=== PATIENT | female | born 1970 | race Caucasian/White ===

== ENCOUNTER 2021-02-25 18:04 | Emergency (ER) | payer OTHER ==
[~2021-02-25] VITALS: Ht 162.6 cm; Wt 72.0 kg
--- NOTE | 2021-02-25 18:15 | NUR ---
PT PRESENTS TO ED VIA AMBULANCE, PRESENTING WITH LEFT LOWER ABD PAIN RADIAITNG TO LEFT FLANK, ONSET TODAY. PT A&O, RESPS EVEN AND UNLABORED. GIVEN 100MCG FENTANYL AND 4 MG ZOFRAN GUNSTOCK REPAIRER BY EMS. BP AND SPO2 MONITORS IN PLACE. CALL LIGHT IN REACH.
[2021-02-25] MEDS ORDERED: PLEASE ENTER HEIGHT AND WEIGHT MC SCH (18:30)
[2021-02-25] MEDS ORDERED: PLEASE ENTER ALLERGIES MC SCH (18:30)
[2021-02-25] MEDS ORDERED: KETOROLAC 30 MG/1 ML IVPush ONE (18:30)
--- NOTE | 2021-02-25 18:35 | NUR ---
PT TO CT
[2021-02-25] MEDS ORDERED: KETOROLAC 30 MG/1 ML ONE (18:50)
--- NOTE | 2021-02-25 18:56 | NUR ---
PT BACK FROM CT, PT MEDICATED PER EMAR WITH TORADOL.
[2021-02-25 18:58] LABS: MICROSCOPIC INDICATED
[2021-02-25] MEDS ORDERED: TAMSULOSIN 0.4 MG CAP.ER.24H PO ONE (19:00)
--- NOTE | 2021-02-25 19:05 | NUR ---
RECEIVED REPORT FROM BAILEY MEJIA. PT RESTING ON GURNEY. NOTED TO HAVE BP 203/110. ERP DR. HO NOTIFIED OF BP. ERP DR. HO TO ROOM 2 FOR RE-EVAL.
--- NOTE | 2021-02-25 19:07 | NUR ---
LAW NOTIFIED BP 203/[address] REPORT TO BAILEY GAMBLE WHO IS ASSUMING CARE.
[2021-02-25] MEDS ORDERED: HYDROmorphone 2 MG/ML, 1ML ONE (19:16)
[2021-02-25] MEDS ORDERED: TAMSULOSIN 0.4 MG CAP.ER.24H ONE (19:16)
--- NOTE | 2021-02-25 19:22 | NUR ---
PT RESTING ON [facility]. S. PT MEDICATED PER AUG.
[2021-02-25] MEDS ORDERED: HYDROmorphone 2 MG/ML, 1ML IVPush PRN (19:30)
--- NOTE | 2021-02-25 19:36 | NUR ---
PT STATES PAIN DECREASED FROM 01/20 TO 2. BP REMAINS ELEVATED AT 160/110. ERP DR. HO NOTIFIED.
[2021-02-25 19:37] VITALS: BP 160/110
--- NOTE | 2021-02-25 20:02 | NUR ---
ERP DR. HO AT BEDSIDE FOR RE-EVAL.
== END 2021-02-25 20:31 | disposition home or self-care (01) ==
LOC: ED 18:22
DX: N13.2 Hydronephrosis with renal and ureteral calculous obstruction (principal); R31.9 Hematuria, unspecified
CPT/HCPCS: 74176; 81001; 96374; 96375; 99284; J1170; J1885